=== PATIENT | male | born 1965 | race Caucasian/White ===

== ENCOUNTER 2023-03-05 18:41 | Emergency (ER) | payer MEDICAID ==
[~2023-03-05] VITALS: Ht 172.7 cm; Wt 68.0 kg
[2023-03-05 18:42] VITALS: BP 118/78
--- NOTE | 2023-03-05 18:47 | NUR ---
PT OFFLOADED TO LOBBY ON W/C.
[2023-03-05] MEDS ORDERED: BENZ200C4 PO (20:52)
[2023-03-05] MEDS ORDERED: ALBU0.0912 INH (20:52)
[2023-03-05] MEDS ORDERED: IBUP-2213 PO (20:52)
--- NOTE | 2023-03-05 21:14 | NUR ---
no nursing interventions provided for patient.
[2023-03-05 21:15] VITALS: BP 118/78
--- NOTE | 2023-03-05 21:15 | NUR ---
Patient discharged. Written and verbal after care instructions given and explained. Patient alert, oriented and verbalized understanding of instructions. Wheel Chair Assisted to lobby per patient will await for family caseworker. Provided patient with homeless packet, food, and patient signed waiver form. All questions addressed prior to discharge. ID band removed. Patient advised to follow up with PMD. Rx of proventil HFA MDI, Benzonatate, and Ibuprofen given. Patient educated on indication of medication including possible reaction and side effects. Opportunity to ask questions provided and answered.
== END 2023-03-05 21:15 | disposition home or self-care (01) ==
LOC: MED 18:41
DX: S20.219A Contusion of unspecified front wall of thorax, initial encounter (principal); F17.210 Nicotine dependence, cigarettes, uncomplicated; Z79.899 Other long term (current) drug therapy; Z79.1 Long term (current) use of non-steroidal anti-inflammatories (NSAID); W18.39XA Other fall on same level, initial encounter; Y92.89 Other specified places as the place of occurrence of the external cause; Y93.89 Activity, other specified; Y99.8 Other external cause status
CPT/HCPCS: 71045; 93005; 99283